=== PATIENT | female | born 1965 | race Caucasian/White ===

== ENCOUNTER 2016-10-07 13:35 | Emergency (ER) | payer OTHER ==
[2016-10-07 13:36] VITALS: BMI 16.9
[2016-10-07] MEDS ORDERED: Tetanus/Diphtheria Toxoids 0.5 ml Syringe IM ONE ×2 (14:21→14:33)
--- NOTE | 2016-10-07 15:14 | C.PDOC ---
History Of Present Illness 51 yr old female presents to the ER stating she stood on something sharp yesterday and now complains of pain to the left plantar aspect of the foot. Patient denies fever, leg pain, weakness or numbness. Time Seen by Provider: 10/07/16 14:10 Chief Complaint (Nursing): Lower Extremity Problem/Injury History Per: Patient History/Exam Limitations: no limitations Onset/Duration Of Symptoms: Days (1) Past Medical History Reviewed: Historical Data, Nursing Documentation, Vital Signs Vital Signs: Last Vital Signs Temp 97.9 F 10/07/16 15:47 Pulse 89 10/07/16 15:47 Resp 18 10/07/16 15:47 BP 137/90 10/07/16 15:47 Pulse Ox 98 10/07/16 16:21 - Medical History PMH: HTN Family History: States: No Known Family Hx - Social History Hx Alcohol Use: No Hx Substance Use: No - Immunization History Hx Tetanus Toxoid Vaccination: No Hx Influenza Vaccination: No Hx Pneumococcal Vaccination: No Review Of Systems Except As Marked, All Systems Reviewed And Found Negative. Constitutional: Negative for: Fever Musculoskeletal: Positive for: Other ((+) Pain to the planter aspect of left foot). Negative for: Leg Pain Neurological: Negative for: Weakness, Numbness Physical Exam - Physical Exam Appears: Non-toxic, No Acute Distress Skin: Warm, Dry, Other (Left Foot - Small puncture wound. No signs of infections. Tender to palpation. ) Head: Atraumatic, Normacephalic Extremity: Normal ROM, No Calf Tenderness, Capillary Refill (<2), No Swelling Pulses: Left Dorsalis Pedis: Normal, Right Dorsalis Pedis: Normal Neurological/Psych: Oriented x3, Normal Speech, Normal Motor ED Course And Treatment O2 Sat by Pulse Oximetry: 98 - Other Rad X-Ray - Left Foot X-Ray: Viewed By Me, Read By Radiologist Interpretation: PROCEDURE: Left Foot Radiographs. HISTORY: plantar puncture wound, r/o FB. COMPARISON: None. FINDINGS: BONES: Bone alignment and mineralization are normal. There is no acute fracture or bone destruction. There is a prominent Stieda process. There is a prominent superior calcaneal enthesophyte. JOINTS: Normal. SOFT TISSUES: There is no radiopaque foreign body. The periarticular soft tissues are normal. OTHER FINDINGS: None. IMPRESSION: No acute fracture or dislocation. No evidence of radiopaque foreign body. Medical Decision Making Medical Decision Making: PLAN: * X-Ray - Left Foot * Cipro PO * Tetanus IM Disposition - Disposition Disposition: HOME/ ROUTINE Disposition Time: 16:19 Condition: STABLE Additional Instructions: Follow up with PMD within 1-2 days. Return to Ed if feel worse. Prescriptions: Ciprofloxacin [Cipro] 1 tab PO BID #10 tab Instructions: Puncture Wound (ED) Print Language: BULGARIAN - Clinical Impression Clinical Impression: Puncture wound - PA / RN SANE / Resident Statement MD/DO has reviewed & agrees with the documentation as recorded. - Scribe Statement The provider has reviewed the documentation as recorded by the Scribe Madhavi Sebastian All medical record entries made by the Scribe were at my direction and personally dictated by me. I have reviewed the chart and agree that the record accurately reflects my personal performance of the history, physical exam, medical decision making, and the department course for this patient. I have also personally directed, reviewed, and agree with the discharge instructions and disposition.
[2016-10-07 15:48] VITALS: BP 137/90; PULSE 89; RESP 18; TEMP 97.9
[2016-10-07 16:21] VITALS: O2SAT 98
== END 2016-10-07 16:27 | disposition home or self-care (01) ==
LOC: C.ER 13:35
DX: S91.332A Puncture wound without foreign body, left foot, initial encounter (principal); W22.8XXA Striking against or struck by other objects, initial encounter